=== PATIENT | male | born 1985 | race African-American/Black ===

== ENCOUNTER 2017-12-19 11:34 | Emergency (ER) | payer SELFPAY | END 2017-12-19 11:54 | disposition left against medical advice (07) | LOC: ERS 11:34 | DX: Z53.21 Procedure and treatment not carried out due to patient leaving prior to being seen by health care provider (principal) ==

== ENCOUNTER 2018-01-25 21:13 | Emergency (ER) | payer SELFPAY | END 2018-01-25 23:20 | disposition home or self-care (01) | LOC: ERS 21:13 | DX: G44.209 Tension-type headache, unspecified, not intractable (principal); K08.89 Other specified disorders of teeth and supporting structures; F17.210 Nicotine dependence, cigarettes, uncomplicated | CPT/HCPCS: 99283 ==

== ENCOUNTER 2021-04-15 17:59 | Emergency (ER) | payer OTHER, SELFPAY | END 2021-04-15 19:54 | disposition home or self-care (01) | LOC: ERS 17:59 | DX: S60.211A Contusion of right wrist, initial encounter (principal); F17.210 Nicotine dependence, cigarettes, uncomplicated; V44.6XXA Car passenger injured in collision with heavy transport vehicle or bus in traffic accident, initial encounter | CPT/HCPCS: 99283 ==

== ENCOUNTER 2021-05-23 18:59 | Emergency (ER) | payer SELFPAY ==
[2021-05-24 08:04] LABS: SARS-CoV-2 PCR by NAA Not Detected (NotDetected)
== END 2021-05-23 20:07 | disposition home or self-care (01) ==
LOC: ERS 18:59
DX: R05 Cough (principal); R09.81 Nasal congestion; R53.83 Other fatigue; Z20.822 Contact with and (suspected) exposure to COVID-19; F17.210 Nicotine dependence, cigarettes, uncomplicated
CPT/HCPCS: 99281; U0003; U0005

== ENCOUNTER 2021-07-06 17:46 | Emergency (ER) | payer SELFPAY ==
[2021-07-06] MEDS ORDERED: diphenhydrAMINE 50 MG/ML VIAL ONE (18:12)
[2021-07-06] MEDS ORDERED: Ondansetron PF 4 MG/2 ML Vial ONE ×2 (18:12→18:19)
[2021-07-06] MEDS ORDERED: Haloperidol Lactate 5 MG/ML VIAL ONE (18:19)
[2021-07-06 18:45] LABS: #Eosinphils 0.1 thou/uL (0.0-0.7); #Lymphocytes 2.1 thou/uL (1.20-3.40); #Monocytes 0.4 thou/uL (0.11-0.59); #Neutrophils 5.9 thou/uL (1.40-6.50); %Basophils 0.5 % (0.0-1.0); %Eosinophils 1.1 % (0.0-10.0); %Lymphocytes 24.9 % (21.0-51.0); %Monocytes 4.2 % (0.0-10.0); %Neutrophils 69.5 % (42.0-75.0); Hemoglobin 16.2 g/dL (14.0-18.0); Mean Corpuscular Hemoglobin 33.6 pg (27.0-31.0); Mean Platelet Volume 8.5 fL (7.4-10.4); Platelet Count 192 thou/uL (130-400); RBC Distribution Width 11.3 % (11.5-14.5); Red Blood Cell (RBC) Count 4.82 mill/uL (4.70-6.10); White Blood Cell (WBC) Count 8.5 thou/uL (4.8-10.8)
[2021-07-06 18:59] LABS: ALT (SGPT) 23 U/L (8-55); AST (SGOT) 28 U/L (5-34); Albumin 4.7 g/dL (3.5-5.0); Alkaline Phosphatase 50 U/L (40-110); Anion Gap 23 mmol/L (10-20); BUN (Urea Nitrogen) 9 mg/dL (8.9-20.6); Bilirubin, Total 0.4 mg/dL (0.2-1.2); Calc. Creatinine Clearance 0 mL/min (70-130); Calcium 10.1 mg/dL (7.8-10.44); Carbon Dioxide 15 mmol/L (22-29); Chloride 106 mmol/L (98-107); Globulin 3.8 g/dL (2.4-3.5); Glucose 157 mg/dL (70-105); Potassium 3.9 mmol/L (3.5-5.1); Protein, Total 8.5 g/dL (6.0-8.3); Sodium 140 mmol/L (136-145)
== END 2021-07-06 19:25 | disposition left against medical advice (07) ==
LOC: ERS 17:46
DX: S06.0X9A Concussion with loss of consciousness of unspecified duration, initial encounter (principal); F17.210 Nicotine dependence, cigarettes, uncomplicated; Y04.0XXA Assault by unarmed brawl or fight, initial encounter
CPT/HCPCS: 80053; 85025; 96374; 96375; J1200; J1630; J2405

== ENCOUNTER 2021-08-24 23:47 | Emergency (ER) | payer SELFPAY ==
[2021-08-25] MEDS ORDERED: Ketorolac Tromethamine 30 MG/ML VIAL ONE (01:24)
== END 2021-08-25 02:00 | disposition home or self-care (01) ==
LOC: ERS 23:47
DX: K03.81 Cracked tooth (principal); F17.210 Nicotine dependence, cigarettes, uncomplicated
CPT/HCPCS: 96372; 99282; J1885

== ENCOUNTER 2021-09-15 17:28 | Emergency (ER) | payer SELFPAY ==
[~2021-09-15 17:28] MED LIST: Iopamidol-370 76% 500 ML 1 ML ONE
[2021-09-15 18:34] LABS: Hemoglobin 15.5 g/dL (14.0-18.0); Mean Corpuscular HGB CONC 34.6 g/dL (32.0-36.0); Mean Corpuscular Hemoglobin 34.7 pg (27.0-31.0); Mean Platelet Volume 7.4 fL (7.4-10.4); Platelet Count 181 thou/uL (130-400); Red Blood Cell (RBC) Count 4.45 mill/uL (4.70-6.10); White Blood Cell (WBC) Count 7.3 thou/uL (4.8-10.8)
[2021-09-15 18:53] LABS: Eosinophils 2 % (0-10); Lymphocytes 41 % (21-51); MDiff Complete? YES; Monocytes 3 % (0-10); Neutrophil 43 % (42-75); Platelet Morphology Comment Appears Adequate; RBC Morphology Normal; Reactive Lymphocytes 11 % (0-10)
[2021-09-15 19:12] LABS: ALT (SGPT) 17 U/L (8-55); AST (SGOT) 18 U/L (5-34); Albumin 4.4 g/dL (3.5-5.0); Alkaline Phosphatase 47 U/L (40-110); Anion Gap 12 mmol/L (10-20); BUN (Urea Nitrogen) 10 mg/dL (8.9-20.6); Bilirubin, Total 0.8 mg/dL (0.2-1.2); Calc. Creatinine Clearance 0 mL/min (70-130); Calcium 9.9 mg/dL (7.8-10.44); Carbon Dioxide 28 mmol/L (22-29); Chloride 104 mmol/L (98-107); Globulin 3.5 g/dL (2.4-3.5); Glucose 87 mg/dL (70-105); Lipase 23 U/L (8-78); Protein, Total 7.9 g/dL (6.0-8.3); Sodium 140 mmol/L (136-145)
[2021-09-15 19:45] LABS: Bilirubin Negative (Negative); Blood, Urine Negative (Negative); Clarity Clear (Clear); Glucose, Urine (Dipstick) Normal (Negative); Ketone, Urine Negative (Negative); Leukocyte Negative Leu/uL (Negative); Nitrite Negative (Negative); Protein, Urine (Dipstick) 20 mg/dL (Neg-Trace); Specific Gravity, Urine 1.035 (1.002-1.036)
== END 2021-09-15 20:28 | disposition home or self-care (01) ==
LOC: ERS 17:28
DX: R10.33 Periumbilical pain (principal); R11.2 Nausea with vomiting, unspecified; F17.210 Nicotine dependence, cigarettes, uncomplicated
CPT/HCPCS: 36415; 74177; 80053; 81003; 83690; 85025; 96372; J0500; Q9967

== ENCOUNTER 2021-09-17 21:32 | Emergency (ER) | payer SELFPAY ==
[2021-09-17 22:16] LABS: Hemoglobin 14.5 g/dL (14.0-18.0); Mean Corpuscular HGB CONC 33.7 g/dL (32.0-36.0); Mean Platelet Volume 7.6 fL (7.4-10.4); Platelet Count 176 thou/uL (130-400); RBC Distribution Width 10.8 % (11.5-14.5); Red Blood Cell (RBC) Count 4.26 mill/uL (4.70-6.10); White Blood Cell (WBC) Count 6.6 thou/uL (4.8-10.8)
[2021-09-17 22:34] LABS: ALT (SGPT) 17 U/L (8-55); AST (SGOT) 29 U/L (5-34); Albumin 4.2 g/dL (3.5-5.0); Alkaline Phosphatase 42 U/L (40-110); Anion Gap 9 mmol/L (10-20); BUN (Urea Nitrogen) 10 mg/dL (8.9-20.6); Bilirubin, Total 0.6 mg/dL (0.2-1.2); Calc. Creatinine Clearance 0 mL/min (70-130); Calcium 9.6 mg/dL (7.8-10.44); Carbon Dioxide 29 mmol/L (22-29); Chloride 106 mmol/L (98-107); Globulin 3.2 g/dL (2.4-3.5); Glucose 100 mg/dL (70-105); Lipase 49 U/L (8-78); Potassium 4.1 mmol/L (3.5-5.1); Protein, Total 7.4 g/dL (6.0-8.3); Sodium 140 mmol/L (136-145)
[2021-09-17 23:17] LABS: Eosinophils 5 % (0-10); Lymphocytes 66 % (21-51); MDiff Complete? YES; Macrocytosis SLIGHT = 6-15 cells (100X) (0-5/hpf); Monocytes 4 % (0-10); Neutrophil 25 % (42-75); Ovalocytes SLIGHT = 2-5 cells (100X) (0-1/hpf); Platelet Morphology Comment Appears Adequate
== END 2021-09-17 23:25 | disposition home or self-care (01) ==
LOC: ERS 21:32
DX: R07.89 Other chest pain (principal); F17.210 Nicotine dependence, cigarettes, uncomplicated
CPT/HCPCS: 36415; 71045; 80053; 83690; 84484; 85025; 93005; 94760

== ENCOUNTER 2021-12-31 20:26 | Emergency (ER) | payer SELFPAY | END 2021-12-31 22:56 | disposition left against medical advice (07) | LOC: ERS 20:26 | DX: Z53.21 Procedure and treatment not carried out due to patient leaving prior to being seen by health care provider (principal) ==

== ENCOUNTER 2022-07-25 04:17 | Emergency (ER) | payer SELFPAY ==
[2022-07-25] MEDS ORDERED: Ondansetron PF 4 MG/2 ML Vial ONE (04:22)
[2022-07-25] MEDS ORDERED: Acetaminophen 500 MG TAB ONE ×2 (04:39→06:40)
[2022-07-25 05:34] LABS: #Eosinphils 0.1 thou/uL (0.0-0.7); #Lymphocytes 1.1 thou/uL (1.20-3.40); #Monocytes 0.5 thou/uL (0.11-0.59); #Neutrophils 4.2 thou/uL (1.40-6.50); %Basophils 0.1 % (0.0-1.0); %Eosinophils 2.2 % (0.0-10.0); %Lymphocytes 18.9 % (21.0-51.0); %Monocytes 8.9 % (0.0-10.0); %Neutrophils 69.9 % (42.0-75.0); Hemoglobin 14.6 g/dL (14.0-18.0); Mean Corpuscular Hemoglobin 34.1 pg (27.0-31.0); Mean Platelet Volume 12.9 fL (7.4-10.4); Platelet Count 13 10x3/uL (130-400); RBC Distribution Width 11.2 % (11.5-14.5); Red Blood Cell (RBC) Count 4.29 mill/uL (4.70-6.10)
[2022-07-25 05:38] LABS: ALT (SGPT) 14 U/L (8-55); AST (SGOT) 20 U/L (5-34); Alkaline Phosphatase 42 U/L (40-110); Anion Gap 13 mmol/L (10-20); BUN (Urea Nitrogen) 10 mg/dL (8.9-20.6); Bilirubin, Total 0.8 mg/dL (0.2-1.2); Calc. Creatinine Clearance 0 mL/min (70-130); Calcium 9.4 mg/dL (7.8-10.44); Carbon Dioxide 23 mmol/L (22-29); Chloride 111 mmol/L (98-107); Estimated GFR 56; Globulin 2.7 g/dL (2.4-3.5); Glucose 112 mg/dL (70-105); Lipase 13 U/L (8-78); Potassium 3.8 mmol/L (3.5-5.1); Protein, Total 6.7 g/dL (6.0-8.3); Sodium 143 mmol/L (136-145)
[2022-07-25 05:54] LABS: MDiff Complete? YES; Macrocytosis SLIGHT = 6-15 cells (100X) (0-5/hpf); Platelet Morphology Comment Appears Decreased
== END 2022-07-25 06:55 | disposition home or self-care (01) ==
LOC: ERS 04:17
DX: B34.9 Viral infection, unspecified (principal); R11.10 Vomiting, unspecified; F17.210 Nicotine dependence, cigarettes, uncomplicated; Z20.822 Contact with and (suspected) exposure to COVID-19
CPT/HCPCS: 36415; 80053; 83690; 85025; 87804; 96374; J2405; U0003; U0005

== ENCOUNTER 2025-04-24 09:35 | Emergency (ER) | payer BC ==
[2025-04-24] MEDS ORDERED: Droperidol 5 MG/2 ML VIAL ONE (10:07)
[2025-04-24 10:24] LABS: #Basophils Less than 0.03 10x3/uL (0.0-0.2); #Eosinophils 0.11 10x3/uL (0.0-0.7); #Monocytes 0.31 10x3/uL (0.11-0.59); #Neutrophils 1.54 10x3/uL (1.40-6.50); %Basophils 0.4 % (0.0-1.0); %Eosinophils 2.3 % (0.0-10.0); %Lymphocytes 59.3 % (21.0-51.0); %Monocytes 6.4 % (0.0-10.0); %Neutrophils 31.6 % (42.0-75.0); Hematocrit 42.3 % (42.0-52.0); Hemoglobin 14.1 g/dL (14.0-18.0); Mean Corpuscular Hemoglobin 32.9 pg (27.0-31.0); Mean Corpuscular Volume 98.6 fL (78.0-98.0); Platelet Count 170 10x3/uL (130-400); Red Blood Cell (RBC) Count 4.29 mill/uL (4.70-6.10); White Blood Cell (WBC) Count 4.87 10x3/uL (4.8-10.8)
[2025-04-24 10:34] LABS: Bacteria/HPF None Seen HPF (None Seen); CAUTI Indications for Culture Dysuria,urgency,freq; Glucose, Urine (Dipstick) Normal (Negative); Leukocyte 75 Leu/uL (Negative); Protein, Urine (Dipstick) Negative (Neg-Trace); RBC/HPF 0-3 HPF (0-3); Specific Gravity, Urine 1.005 (1.002-1.036)
[2025-04-24 10:38] LABS: Urine Culture Reflex Yes Yes
[2025-04-24 10:45] LABS: ALT (SGPT) 16 U/L (Less than 45); AST (SGOT) 23 U/L (11-34); Albumin 4.3 g/dL (3.1-4.5); Alkaline Phosphatase 44 U/L (40-110); Anion Gap 8 mmol/L (10-20); BUN (Urea Nitrogen) 9 mg/dL (8.9-20.6); Bilirubin, Total 0.4 mg/dL (0.3-1.2); Calc. Creatinine Clearance 0 mL/min (70-130); Calcium 8.9 mg/dL (7.8-10.44); Carbon Dioxide 28 mmol/L (22-29); Chloride 108 mmol/L (98-107); Globulin 3.0 g/dL (2.4-3.5); Glucose 75 mg/dL (70-105); Lipase 42 U/L (8-78); Magnesium 1.9 mg/dL (1.6-2.6); Potassium 4.4 mmol/L (3.5-5.1); Sodium 140 mmol/L (136-145)
[2025-04-24 14:32] LABS: Chlam.trachomatis by PCR,Urine DETECTED (NotDetected); GC N.gonorrhoeae PCR,UrineVOID Not Detected (NotDetected)
== END 2025-04-24 12:01 | disposition home or self-care (01) ==
LOC: ERS 09:35
DX: R11.2 Nausea with vomiting, unspecified (principal); F17.210 Nicotine dependence, cigarettes, uncomplicated
CPT/HCPCS: 80053; 81001; 83690; 83735; 85025; 87086; 87491; 87591; 93005; 96374; J1790

== ENCOUNTER 2025-07-11 18:54 | Emergency (ER) | payer BC ==
[2025-07-11 19:22] LABS: #Basophils Less than 0.03 10x3/uL (0.0-0.2); #Eosinophils Less than 0.03 10x3/uL (0.0-0.7); #Monocytes 0.33 10x3/uL (0.11-0.59); #Neutrophils 8.69 10x3/uL (1.40-6.50); %Basophils 0.1 % (0.0-1.0); %Eosinophils 0.2 % (0.0-10.0); %Lymphocytes 4.0 % (21.0-51.0); %Monocytes 3.5 % (0.0-10.0); %Neutrophils 91.7 % (42.0-75.0); Hematocrit 47.2 % (42.0-52.0); Hemoglobin 15.3 g/dL (14.0-18.0); Mean Corpuscular Hemoglobin 32.4 pg (27.0-31.0); Mean Corpuscular Volume 100.0 fL (78.0-98.0); Platelet Count 175 10x3/uL (130-400); Red Blood Cell (RBC) Count 4.72 mill/uL (4.70-6.10); White Blood Cell (WBC) Count 9.48 10x3/uL (4.8-10.8)
[2025-07-11] MEDS ORDERED: Famotidine/PF 20 mg/2ml Vial ONE (19:31)
[2025-07-11] MEDS ORDERED: Ketorolac Tromethamine 30 MG (1 mL) VIAL ONE (19:31)
[2025-07-11] MEDS ORDERED: Ondansetron PF 4 MG/2 ML Vial ONE (19:31)
[2025-07-11] MEDS ORDERED: Dicyclomine 20 MG TAB ONE (19:31)
[2025-07-11 19:56] LABS: ALT (SGPT) 33 U/L (Less than 45); AST (SGOT) 41 U/L (11-34); Albumin 4.5 g/dL (3.1-4.5); Alkaline Phosphatase 46 U/L (40-110); Anion Gap 16 mmol/L (10-20); BUN (Urea Nitrogen) 13 mg/dL (8.9-20.6); Bilirubin, Total 1.1 mg/dL (0.3-1.2); Calc. Creatinine Clearance 0 mL/min (70-130); Calcium 9.5 mg/dL (7.8-10.44); Carbon Dioxide 23 mmol/L (22-29); Chloride 107 mmol/L (98-107); Globulin 3.5 g/dL (2.4-3.5); Glucose 103 mg/dL (70-105); Lipase 10 U/L (8-78); Potassium 4.3 mmol/L (3.5-5.1); Sodium 142 mmol/L (136-145)
== END 2025-07-11 21:55 | disposition home or self-care (01) ==
LOC: ERS 18:54
DX: A08.4 Viral intestinal infection, unspecified (principal); F17.210 Nicotine dependence, cigarettes, uncomplicated
CPT/HCPCS: 80053; 83690; 85025; 96361; 96374; 96375; J1308; J1885; J2405